=== PATIENT | male | born 1965 | race Caucasian/White ===

== ENCOUNTER 2019-05-27 18:08 | Inpatient (IN) | payer BC ==
[~2019-05-27] VITALS: Ht 177.8 cm; Wt 107.5 kg
--- NOTE | 2019-05-27 18:16 | NUR ---
EKG DONE IN [facility] BY SWETHA QUIROS.
--- NOTE | 2019-05-27 18:25 | NUR ---
PT GETTING LABS DRAWN BY [employer]
[2019-05-27 18:36] LABS: BASOPHIL % 0.6 % (0-2); PLATELET COUNT 278 x10^3mcL (130-400); RED CELL DISTRIBUTION WIDTH 14.3 % (11.5-14.5)
[2019-05-27 18:42] LABS: CALCIUM 8.7 mg/dL (8.5-10.1); CARBON DIOXIDE 26.5 mmol/L (21-32); CHLORIDE SERUM 101 mmol/L (98-107); CREATININE SERUM 0.9 mg/dL (0.7-1.3); GFR1 > 60 mL/min; GLUCOSE SERUM 212 mg/dL (74-106); POTASSIUM SERUM 3.8 mmol/L (3.5-5.1); SODIUM SERUM 139 mmol/L (136-145)
[2019-05-27 18:53] LABS: ALBUMIN 3.6 g/dL (3.4-5.0); ALKALINE PHOSPHATASE 84 U/L (46-116); ALT/SGPT 21 U/L (16-63); AST/SGOT 14 U/L (15-37); BILIRUBIN TOTAL 0.4 mg/dL (0.20-1.00); TOTAL PROTEIN, SERUM 7.4 g/dL (6.4-8.2)
--- NOTE | 2019-05-27 19:25 | NUR ---
PT PRESENTS TO ED WITH C/O CHEST PAIN X4 HRS. PT STATES THAT THE PAIN IS ON AND OFF AND IS PRESSURE LIKE IN NATURE. PT STATES THAT THE PAIN COMES AND GOES AND LASTS LESS THAN 1 MINUTE. PT STATES THAT THE PAIN IS NOT ASSOCIATED WITH NAUSEA OR VOMITING. PT DENIES RADIATION OF THE PAIN WELL. PT PLACED ON FULL CM, VITAL SIGNS STABLE AT THIS TIME. PT AOX4, RESP EVEN AND UNLABORED, NO ACUTE DISTRESS NOTED.
[2019-05-27 19:53] LABS: T4(THYROXINE) 9.9 ug/dL (4.7-13.3)
--- NOTE | 2019-05-27 20:45 | NUR ---
PT REPORT CALLED TO JAMES NEUMANN BY MARYAM NEUMANN TO ASSUME PT CARE.
--- NOTE | 2019-05-27 20:56 | NUR ---
PT TRANSFERRED TO [facility] BY [facility] BY LAURA NEUMANN AND ISHAAN EMT. PT ON FULL CM FOR TRANSPORT. PT AOX4, RESP EVEN AND UNLABORED, NO ACUTE DISTRESS NOTED.
--- NOTE | 2019-05-27 21:00 | NUR ---
RECEIVED PT FROM ED VIA [facility], CAME IN DUE TO CHEST PAIN. AAOX4. DENIES HEADACHE/DIZZINESS. ABLE TO FOLLOW COMMANDS. NO SOB NOTED, LUNG SOUNDS CTA. DENIES CHEST PAIN/PRESSURE, NSR ON THE MONITOR. DENIES ABDOMINAL DISCOMFORT. VOIDS. IV SITE PATENT AND INTACT ON THE RAC. CALL LIGHT ON REACH. NEEDS ARE ATTENDED. ENDORSED TO PRIMARY NURSE NENA FOR CONTINUITY OF CARE
[2019-05-27 21:13] VITALS: BP 145/70
[2019-05-27 21:20] VITALS: Ht 177.8 cm; Wt 107.5 kg
[2019-05-27 21:26] LABS: microscopic required? NO
--- NOTE | 2019-05-27 21:26 | NUR ---
PT IS A/O X4. SITTING AT BEDSIDE WATCHING TV AND EATING. DENIES ANY PAIN AT THIS TIME. WILL CONTINUE TO MONITOR.
[2019-05-27 21:29] LABS: UA SPECIFIC GRAVITY 1.025 (1.005-1.035); urine erythrocyte NEGATIVE (NEGATIVE)
[2019-05-27 21:38] LABS: AMPHETAMINE QUAL UR NONE DETECTED (See below)
[2019-05-27] MEDS ORDERED: METFORMIN HYDR500 M1 PO (22:07)
[2019-05-27] MEDS ORDERED: METFORMIN HCL1000 MG PO (22:38)
[2019-05-27] MEDS ORDERED: PIOGLITAZONE HC30 MG PO (22:38)
[2019-05-27] MEDS ORDERED: LOSARTAN POTAS100 M1 PO (22:38)
[2019-05-27] MEDS ORDERED: LIPI20 PO (22:38)
--- NOTE | 2019-05-27 23:00 | NUR ---
PT REQUESTING TO TAKE HIS METFORMIN. EDUCATED PT TO NOT TAKE ANY MEDICATIONS UNLESS ORDERED BY DRTheron DURING INPATIENT STAY. PT VERBALIZES UNDERSTANDING, BUT INSISTANT ON TAKING METFORMIN. RBS 241. UPON CHECKING BS, PT STATES HE TOOK METFORMIN. DR ORTEGA MADE AWARE. PER DR ORTEGA, WILL DISCUSS PLAN OF CARE WITH PT IN THE AM. REINFORCED INSTRUCTIONS REGARDING PT MEDICATIONS. AT BEDSIDE TO TAKE MEDICATIONS HOME WITH HER.
--- NOTE | 2019-05-27 23:06 | NUR ---
PT IS AWAKE AND WATCHING TV. RESTING COMFORTABLY IN BED. BREATHING IS EVEN AND UNLABORED ON RA. DENIES ANY CHEST PAIN AT THIS TIME. BED IN LOWEST POSITION. CALL LIGHT WITHIN REACH. WILL CONTINUE TO MONITOR.
--- NOTE | 2019-05-28 02:19 | NUR ---
PT IS RESTING COMFORTABLY IN BED WITH EYES CLOSED, BUT IS EASILY AROUSABLE WHEN SPOKEN TO. BREATHING IS EVEN AND UNLABORED. NO SIGNS OF RESP. DISTRESS. BED IN LOWEST POSITION. CALL LIGHT WITHIN REACH. WILL CONTINUE TO MONITOR.
--- NOTE | 2019-05-28 04:57 | NUR ---
PT SLEPT IN LONG INTERVALS THROUGHOUT THE NIGHT. NO ACUTE EVENTS OVERNIGHT. COMFORT AND SAFETY MEASURES MAINTAINED. ALL NEEDS ASSESSED AND ATTENDED TO. WILL CONTINUE TO MONITOR AND ENDORSE CARE TO DAY SHIFT NURSE.
[2019-05-28 05:41] VITALS: BP 113/63
[2019-05-28 06:20] LABS: BASOPHIL % 0.7 % (0-2); PLATELET COUNT 243 x10^3mcL (130-400); RED CELL DISTRIBUTION WIDTH 14.3 % (11.5-14.5)
[2019-05-28 06:38] LABS: CALCIUM 8.6 mg/dL (8.5-10.1); CARBON DIOXIDE 25.4 mmol/L (21-32); CHLORIDE SERUM 106 mmol/L (98-107); CREATININE SERUM 0.7 mg/dL (0.7-1.3); GFR1 > 60 mL/min; GLUCOSE SERUM 143 mg/dL (74-106); MAGNESIUM 1.9 mg/dL (1.8-2.4); PHOSPHOROUS 4.2 mg/dL (2.5-4.9); SODIUM SERUM 141 mmol/L (136-145)
--- NOTE | 2019-05-28 07:20 | NUR ---
RECEIVED REPORT FROM WEEKEND CAREGIVER NURSE PT A&O X4 SITTING AT THE EDGE OF BED EATING BREAKFAST.. DENIES CHEST PAIN OR PRESSURE AT THIS TIME. ASSESSED AND DFOCUMENTED. STABLE NO DISTRESS NOTED. IV ON RAC PATENT AND INTACT NS @100ML. BED IN LOW POSITION ALL NEEDS ATTENDED TO AT THIS TIME. WILL CONTINUE TO MONITOR.
--- NOTE | 2019-05-28 07:26 | NUR ---
ENDORSED CARE TO DAY SHIFT NURSE, JOHN NEUMANN.
--- NOTE | 2019-05-28 08:32 | NUR ---
PT LYING IN BED AWAKE WATCHING TV. ADMINISTERED SCHEDULED MEDICATION PER MAR NO ADVERSE AFFECTS NOTED. ALL NEEDS ATTENDED TO . WILL CONTINUE TO MONITOR.
[2019-05-28 08:40] VITALS: BP 116/68
--- NOTE | 2019-05-28 10:00 | NUR ---
PT WANTING UPDATES ON CARE EXPLAINED TO PT WE ARE WAITING FOR POWER BRAKE OPERATOR TO ASSESS AND CLEAR HIM CARDIAC HERNANDEZ. PT VERBALIZED UNDERSTANDING. QUESTIONS AND CONCERNS ADDRESSED. AWAITING DR. TUBBS AT THIS TIME.
--- NOTE | 2019-05-28 11:26 | NUR ---
ECHOCARDIOGRAM PENDING-NURSE WITH PATIENT
--- NOTE | 2019-05-28 12:45 | NUR ---
PT SITTING UP ON EDGE OF BED EATING LUNCH TOLERATING DIET WELL. ALL QUESTIONS AND CONCERNS ADDRESSED AT THIS TIME.WILL CONTINUE TO MONITOR.
[2019-05-28 13:23] VITALS: BP 124/75
--- NOTE | 2019-05-28 14:01 | NUR ---
SPOKE TO PATIENT REGUARDING IF DR. TUBBS HAD BEEN IN TO ASSESS HIM PER PT HE STATED DR. TUBBS HAS NOT SEEN HIM YET. INFORMED PT WE WILL CALL DR TUBBS OFFICE TO GET AN UPDATE BECAUSE DR TUBBS HAD ALREADY BEEN IN AND HAS LEFT THE HOSPITAL. ASKED PT IF HE WOULD BE OK TO TALK ON THE PHONE WITH DR TUBBS. PT STATED " I WOULD LIKE TO WAIT AND SPEAK TO HIM IN PERSON BECAUSE I THOUGHT THAT IS WHAT I WAS WAITING FOR." REITERATED DR TUBBS OFFICE WAS CALLED AND WILL UPDATE PT ON STATUS. NEED ATTENDED TO WILL CONTINUE TO MONITOR.
--- NOTE | 2019-05-28 15:00 | NUR ---
PER CHARGE NURSE DIONI TUBBS CALLED BACK STATING HE WILL NOT BE RETURNING TO THE HOSPITAL TODAY. PER DR TUBBS ECHO IS NORMAL AND PT IS CLEAR CARDIAC HERNANDEZ AND STABLE TO BE DISCHARGED.
--- NOTE | 2019-05-28 15:10 | NUR ---
PRODUCTION DISPATCHER KEISHA AT BEDSIDE ADDRESSING PT CONCERN ABOUT PLAN OF CARE. ALL QUESTIONS AND CONCERNS ADDRESSED. DR PATEL TO BE PAGED TO SPEAK WITH PT.
[2019-05-28 15:25] VITALS: BP 124/75
--- NOTE | 2019-05-28 15:30 | NUR ---
DR. PATEL AT BEDSIDE ADDRESSING PT CONCERN ABOUT PLAN OF CARE ALL QUESTIONS AND CONCERNS ADDRESSED. WILL DISCHARGE PT PER ORDER.
--- NOTE | 2019-05-28 15:40 | NUR ---
PT STANDING AT BEDSIDE DRESSED. IV D/C WITH CATHETER INTACT BANDAGE APPLIED. ALL BELONGINGS WITH PATIENT. DISCHARGE INSTRUCTIONS WELL EDUCATION. INSTRUCTED PT ABOUT FOLLOW UP APPT. PATIENT VERBALIZED UNDERSTANDING. DR TUBBS NUMBER IN DISCHARGE PAPER WORK FOR HIS REFERENCE FOR CUSTOMER ORDERS CLERK. ID BAND AND TELE MONITOR REMOVED AND RETURNED TO WET PRIMER POWDER BLENDER. ALL QUESTIONS AND CONCERNS ADDRESSED ALL NEEDS ATTENDED TO. PT TO BE ESCORTED TO LOBBY BY BIOFUELS ENGINEERING MANAGER.
== END 2019-05-28 15:40 | disposition home or self-care (01) | DRG 206 ==
LOC: ED 18:08 → DU 19:39
PROVIDERS: Emergency Medicine; ADMIT Internal Medicine
DX: M94.0 Chondrocostal junction syndrome [Tietze] (principal); E11.65 Type 2 diabetes mellitus with hyperglycemia; D63.8 Anemia in other chronic diseases classified elsewhere; E78.00 Pure hypercholesterolemia, unspecified; E66.9 Obesity, unspecified; Z72.89 Other problems related to lifestyle; Z79.84 Long term (current) use of oral hypoglycemic drugs; Z68.34 Body mass index [BMI] 34.0-34.9, adult; Z90.49 Acquired absence of other specified parts of digestive tract; Z87.891 Personal history of nicotine dependence; Z79.899 Other long term (current) drug therapy
CPT/HCPCS: 82962; 83880; G0378; J7030; Q0092